=== PATIENT | female | born 1990 ===

== ENCOUNTER 2017-04-06 09:00 | Inpatient (IN) ==
[2017-04-06 10:53] LABS: Basophils % 0.3 % (0.0-0.8); Eosinophils # 0.1 10*3/uL (0.0-0.87); Eosinophils % 1.1 % (0.00-10.9); Hematocrit 25.2 VOL% (35.7-47.0); Hemoglobin 7.6 GM/DL (12.0-16.0); Immature Granulocytes % 0.6 %; Immature Granulocytes Absolute 0.04 #; Lymphocytes # 1.8 10*3/uL (1.4-4.0); Lymphocytes % 28.3 % (21.3-54.2); Mean Corpuscular HGB Conc 30.2 GM/DL (32-36); Mean Corpuscular Hemoglobin 23 PG (27-34); Mean Corpuscular Volume 75.2 FL (87-102); Mean Platelet Volume 10.8 FL (9.6-12.0); Monocytes # 0.6 10*3/uL (0.11-0.8); Monocytes % 10.3 % (1.7-12.7); NRBC # 0.02 10*3/uL; Neutrophils # 3.7 10*3/uL (1.4-7.4); Neutrophils % 59.4 % (38.7-73.9); Platelet Count 256 T/CUMM (130-400); Red Blood Count 3.35 MC/CUMM (3.8-5.5); Red Cell Distribution Width 15.7 % (9.3-17.3); White Blood Count 6.2 T/CUMM (4-12)
[2017-04-06 10:57] LABS: INR 0.9; PT Patient Result 9.6 SECS; Partial Thromboplastin Time 30.3 SECS (0-40)
[2017-04-06 11:03] LABS: Apearance,Urine CLOUDY (Clear); Bacteria,Urine Many /HPF (Few); Bilirubin,Urine Negative (Negative); Blood, Urine Negative (Negative); Glucose,Urine (UA) Negative (Negative); Ketones,Urine Negative (Negative); Mucus,Urine Moderate /LPF (Occasional); Nitrite,Urine Negative (Negative); Protein,Urine >=500 MG/DL; RBC,Urine 3 /HPF (0-4); Squamous Epithelial Cell,Urine Occasional /HPF (0-10); Urine Color Yellow (Yellow); Urine Specific Gravity 1.023 (1.001-1.035); Urine Urobilinogen < 2.0 EU/DL (0.2-1.0); WBC,Urine 5 /HPF (0-6)
[2017-04-06 11:25] LABS: Albumin 2.3 G/DL (3.4-5.0); Bilirubin,Total 0.8 MG/DL (0.2-1.0); Calcium 8.1 MG/DL (8.5-10.1); Osmolality,Calculated 279.3 MOS/KG (273-304); Potassium 4.3 MMOL/L (3.5-5.1); Total Protein 5.1 G/DL (6.4-8.3)
[2017-04-06] MEDS: DEXTROSE 5% LACTATED RINGERS 1,000 ML IV SCH (13:38)
[2017-04-06] MEDS: LABETALOL 200 MG TABLET PO SCH ×2 (13:43→20:48)
[2017-04-06] MEDS ORDERED: ONDANSETRON 4 MG/2 ML VIAL IV PRN (22:24)
[2017-04-06] MEDS ORDERED: FAMOTIDINE 20 MG/2 ML VIAL IV ONE (22:24)
[2017-04-07] MEDS: DEXTROSE 5% LACTATED RINGERS 1,000 ML IV SCH ×2 (00:36→05:21)
[2017-04-07 06:22] LABS: Basophils % 0.4 % (0.0-0.8); Eosinophils # 0.1 10*3/uL (0.0-0.87); Eosinophils % 1.8 % (0.00-10.9); Hematocrit 22.4 VOL% (35.7-47.0); Hemoglobin 6.7 GM/DL (12.0-16.0); Immature Granulocytes % 0.7 %; Immature Granulocytes Absolute 0.04 #; Lymphocytes # 2.1 10*3/uL (1.4-4.0); Lymphocytes % 38.5 % (21.3-54.2); Mean Corpuscular HGB Conc 29.9 GM/DL (32-36); Mean Corpuscular Hemoglobin 22 PG (27-34); Mean Corpuscular Volume 74.4 FL (87-102); Mean Platelet Volume 11.3 FL (9.6-12.0); Monocytes # 0.6 10*3/uL (0.11-0.8); Monocytes % 10.7 % (1.7-12.7); NRBC # 0.02 10*3/uL; Neutrophils # 2.6 10*3/uL (1.4-7.4); Neutrophils % 47.9 % (38.7-73.9); Platelet Count 243 T/CUMM (130-400); Red Blood Count 3.01 MC/CUMM (3.8-5.5); Red Cell Distribution Width 15.9 % (9.3-17.3); White Blood Count 5.4 T/CUMM (4-12)
[2017-04-07 06:51] LABS: INR 0.9; PT Patient Result 9.8 SECS; Partial Thromboplastin Time 31.5 SECS (0-40)
[2017-04-07 06:55] LABS: Bilirubin,Total 1.1 MG/DL (0.2-1.0); Calcium 7.8 MG/DL (8.5-10.1); Potassium 4.2 MMOL/L (3.5-5.1); Total Protein 4.7 G/DL (6.4-8.3); Uric Acid 5.8 MG/DL (2.6-6.0)
[2017-04-07] MEDS ORDERED: SODIUM CHLORIDE 0.9% 1,000 ML IV PRN (07:12)
[2017-04-07] MEDS ORDERED: OXYTOCIN/LR 20 UNIT/1,000 ML BAG IV ONE (08:31)
[2017-04-07] MEDS ORDERED: CITRIC ACID/SODIUM CITRATE 30 ML UDCUP PO ONE (08:45)
[2017-04-07] MEDS ORDERED: ceFAZolin 2,000 MG in PREMIX 1 EACH IV ONE (08:45)
[2017-04-07] MEDS ORDERED: FAMOTIDINE 20 MG/2 ML VIAL IV ONE (08:45)
[2017-04-07] MEDS: LABETALOL 200 MG TABLET PO SCH ×2 (09:21→21:38)
[2017-04-07] MEDS ORDERED: PHENYLEPHRINE 1 MG/10 ML SYRINGE IV ONE (11:41)
[2017-04-07] MEDS ORDERED: ONDANSETRON 4 MG/2 ML VIAL ONE (11:41)
[2017-04-07] MEDS ORDERED: MIDAZOLAM 2 MG/2 ML VIAL ONE (13:00)
[2017-04-07] MEDS ORDERED: ePHEDrine 50 MG/ML AMP ONE (13:00)
[2017-04-07] MEDS ORDERED: OXYTOCIN 10 UNIT/ML VIAL ONE (13:01)
[2017-04-07] MEDS ORDERED: LACTATED RINGERS 3,000 ML IV ONE (13:01)
[2017-04-07] MEDS ORDERED: fentaNYL 100 MCG/2 ML VIAL ONE (13:02)
[2017-04-07] MEDS ORDERED: MORPHINE 10 MG/10 ML VIAL ONE (13:03)
[2017-04-07 13:39] LABS: Apearance,Urine CLEAR (Clear); Bilirubin,Urine Negative (Negative); Blood, Urine Negative (Negative); Glucose,Urine (UA) Negative (Negative); Ketones,Urine Negative (Negative); Mucus,Urine Occasional /LPF (Occasional); Nitrite,Urine Negative (Negative); Protein,Urine >=500 MG/DL; RBC,Urine 1 /HPF (0-4); Squamous Epithelial Cell,Urine Occasional /HPF (0-10); Urine Color Yellow (Yellow); Urine Specific Gravity 1.016 (1.001-1.035); Urine Urobilinogen < 2.0 EU/DL (0.2-1.0); WBC,Urine 2 /HPF (0-6)
[2017-04-07] MEDS ORDERED: HYDROCORTISONE 2.5% RECTAL CREAM 30 GM TUBE TOP PRN (14:03)
[2017-04-07] MEDS ORDERED: RHO(D) IMMUNE GLOBULIN 300 MCG SYRINGE IM ONE (14:03)
[2017-04-07] MEDS ORDERED: BISACODYL 10 MG SUPP RECTAL PRN (14:03)
[2017-04-07] MEDS ORDERED: DIPH/TET/ACEL PERT BOOSTER VACCINE 0.5 ML VIAL IM ONE (14:03)
[2017-04-07] MEDS ORDERED: LANOLIN 50% CREAM 0.3 OZ TUBE TOP PRN (14:03)
[2017-04-07] MEDS ORDERED: MEASLES/MUMPS/RUBELLA VACCINE 0.5 ML VIAL SUBCUT ONE (14:03)
[2017-04-07] MEDS ORDERED: oxyCODONE/ACETAMINOPHEN 5-325 MG TABLET PO PRN (14:03)
[2017-04-07] MEDS ORDERED: BENZOCAINE 20%/MENTHOL 0.5% SPRAY 56 GM CAN TOP PRN (14:03)
[2017-04-07] MEDS ORDERED: ONDANSETRON 4 MG/2 ML VIAL IV PRN ×2 (14:03→21:09)
[2017-04-07] MEDS ORDERED: WITCH HAZEL PADS 100/JAR TOP PRN (14:03)
[2017-04-07] MEDS ORDERED: ACETAMINOPHEN 325 MG TABLET PO PRN (14:03)
[2017-04-07] MEDS ORDERED: LABETALOL 20 MG/4 ML SYRINGE IV PRN ×3 (14:25→15:30)
[2017-04-07] MEDS ORDERED: LABETALOL 100 MG/20 ML VIAL IV PRN (14:37)
[2017-04-07] MEDS ORDERED: guaiFENesin 200 MG/10 ML UDCUP PO PRN (14:40)
[2017-04-07] MEDS: HYDROmorphone 2 MG/1 ML VIAL IV PRN ×2 (14:53→19:25)
[2017-04-07] MEDS ORDERED: HYDROmorphone 2 MG/1 ML VIAL IV ONE (15:30)
[2017-04-07] MEDS ORDERED: MAGNESIUM SULF RIDER 4 GM in PREMIX 1 EACH IV ONE (15:41)
[2017-04-07] MEDS ORDERED: MAGNESIUM SULF RIDER 0 ML IV ONE (15:47)
[2017-04-07] MEDS: hydrALAZINE 20 MG/1 ML VIAL IV PRN ×3 (15:51→21:36)
[2017-04-07] MEDS: MAGNESIUM SULF DRIP 40 GM/1,000 ML ML IV SCH (16:24)
[2017-04-07] MEDS: OXYTOCIN/LR 20 UNIT/1,000 ML BAG IV ONE ×2 (19:29)
[2017-04-07] MEDS: ceFAZolin 1,000 MG in SYRINGE 1 EACH IV SCH (20:27)
[2017-04-07] MEDS: DOCUSATE SODIUM 100 MG CAPSULE PO SCH (20:33)
[2017-04-07] MEDS: IBUPROFEN 800 MG TABLET PO PRN (20:33)
[2017-04-07] MEDS: INSULIN REGULAR 100 UNIT/ML SUBCUT SCH (20:59)
[2017-04-07] MEDS: INSULIN NPH 100 UNIT/ML SUBCUT SCH (20:59)
[2017-04-07] MEDS: oxyCODONE/ACETAMINOPHEN 5-325 MG TABLET PO PRN (21:39)
[2017-04-08] MEDS: oxyCODONE/ACETAMINOPHEN 5-325 MG TABLET PO PRN (03:50)
[2017-04-08] MEDS: IBUPROFEN 800 MG TABLET PO PRN ×3 (03:51→18:39)
[2017-04-08] MEDS: ceFAZolin 1,000 MG in SYRINGE 1 EACH IV SCH ×2 (03:54→11:56)
[2017-04-08 04:54] LABS: Basophils % 0.1 % (0.0-0.8); Eosinophils % 0.1 % (0.00-10.9); Hematocrit 28.4 VOL% (35.7-47.0); Immature Granulocytes % 0.6 %; Immature Granulocytes Absolute 0.08 #; Lymphocytes # 1.6 10*3/uL (1.4-4.0); Lymphocytes % 11.9 % (21.3-54.2); Mean Corpuscular HGB Conc 31.7 GM/DL (32-36); Mean Corpuscular Hemoglobin 24 PG (27-34); Mean Corpuscular Volume 75.5 FL (87-102); Neutrophils % 80.3 % (38.7-73.9); Platelet Count 239 T/CUMM (130-400); Red Blood Count 3.76 MC/CUMM (3.8-5.5); Red Cell Distribution Width 16.5 % (9.3-17.3); White Blood Count 13.7 T/CUMM (4-12)
[2017-04-08] MEDS ORDERED: LACTATED RINGERS 1,000 ML IV SCH (06:05)
[2017-04-08] MEDS ORDERED: INSULIN REGULAR 100 UNIT/ML SUBCUT SCH (07:30)
[2017-04-08] MEDS ORDERED: INSULIN NPH 100 UNIT/ML SUBCUT SCH (07:30)
[2017-04-08] MEDS: LABETALOL 200 MG TABLET PO SCH ×2 (08:20→21:43)
[2017-04-08] MEDS: DOCUSATE SODIUM 100 MG CAPSULE PO SCH ×2 (10:30→21:43)
[2017-04-08] MEDS: MULTIVITAMIN (PRENATAL) TABLET PO SCH (10:30)
[2017-04-08] MEDS: INSULIN NPH 100 UNIT/ML SUBCUT SCH (17:34)
[2017-04-08] MEDS: INSULIN REGULAR 100 UNIT/ML SUBCUT SCH (17:35)
[2017-04-08] MEDS ORDERED: FUROSEMIDE 40 MG/4 ML VIAL IV ONE (20:11)
[2017-04-08] MEDS ORDERED: hydrALAZINE 20 MG/1 ML VIAL IV PRN (20:13)
[2017-04-08] MEDS ORDERED: SIMETHICONE CHEW 80 MG TABLET PO PRN (20:54)
[2017-04-08] MEDS: MAGNESIUM HYDROXIDE SUSP 30 ML UDCUP PO PRN (21:43)
[2017-04-08] MEDS ORDERED: oxyCODONE/ACETAMINOPHEN 5-325 MG TABLET PO PRN (23:52)
[2017-04-09] MEDS: oxyCODONE/ACETAMINOPHEN 5-325 MG TABLET PO PRN ×3 (00:09→19:53)
[2017-04-09] MEDS: IBUPROFEN 800 MG TABLET PO PRN ×2 (02:32→16:16)
[2017-04-09] MEDS: DOCUSATE SODIUM 100 MG CAPSULE PO SCH ×3 (08:43→21:47)
[2017-04-09] MEDS: LABETALOL 200 MG TABLET PO SCH ×3 (08:44→21:47)
[2017-04-09] MEDS: MULTIVITAMIN (PRENATAL) TABLET PO SCH (08:44)
[2017-04-09] MEDS: FUROSEMIDE 40 MG/4 ML VIAL IV SCH ×2 (09:26→16:29)
[2017-04-09] MEDS ORDERED: INFLUENZA VIRUS VACCINE 0.5 ML SYRINGE IM ONE (09:30)
[2017-04-09] MEDS: ALBUTEROL 1.25 MG/3 ML NEB RESP TX SCH ×5 (09:50→23:15)
[2017-04-09 10:35] LABS: Magnesium 3.2 MG/DL (1.8-2.4); Osmolality,Calculated 283.3 MOS/KG (273-304); Potassium 4.8 MMOL/L (3.5-5.1)
[2017-04-09] MEDS: MAGNESIUM HYDROXIDE SUSP 30 ML UDCUP PO PRN (15:55)
[2017-04-09] MEDS ORDERED: FUROSEMIDE 40 MG/4 ML VIAL IV SCH (16:00)
[2017-04-09] MEDS: MAGNESIUM SULF DRIP 40 GM/1,000 ML ML IV SCH ×2 (20:45→21:47)
[2017-04-10] MEDS: ALBUTEROL 1.25 MG/3 ML NEB RESP TX SCH ×2 (03:53→08:55)
[2017-04-10] MEDS: LABETALOL 200 MG TABLET PO SCH (08:20)
[2017-04-10] MEDS: FUROSEMIDE 40 MG/4 ML VIAL IV SCH (08:26)
[2017-04-10] MEDS: MULTIVITAMIN (PRENATAL) TABLET PO SCH (08:27)
[2017-04-10] MEDS: DOCUSATE SODIUM 100 MG CAPSULE PO SCH (08:27)
[2017-04-10 08:58] VITALS: BP 141/90
== END 2017-04-10 12:15 | disposition home or self-care (01) | DRG 765 ==
LOC: N.RAD 09:00 → N.LD 09:04 → N.OB 04-08 11:30
PROVIDERS: ADMIT Specialist; ATTEND Specialist
PROC: LDCSECT (ICD-10-PCS; 2017-04-07 12:00)